=== PATIENT | male | born 1980 | race Caucasian/White ===

== ENCOUNTER 2017-01-23 13:09 | Day surgery (SDC) | payer BC, MEDICARE ==
[2017-01-23] MEDS ORDERED: PROPOFOL 10 MG/ML VIAL IV ONE (14:00)
[2017-01-23] MEDS ORDERED: MIDAZOLAM HCL 2MG/2ML VIAL IV ONE (14:00)
[2017-01-23] MEDS ORDERED: LIDOCAINE 2% MDV (20MG/ML) 20ML VIAL IV ONE (14:00)
--- NOTE | 2017-01-29 21:10 | Operative Note ---
DATE OF SURGERY: 01/23/2017 OPERATION: COLONOSCOPY with hot snare polypectomy and hemoclip application. PREOPERATIVE DIAGNOSIS: Change in bowel habits. POSTOPERATIVE DIAGNOSIS: Transverse colon polyp, status post hot snare polypectomy and hemoclip placement for wound closure purposes. PROCEDURE: After informed consent was obtained from the patient, he was placed in the left lateral decubitus position in the endoscopy suite, sedated and monitored by the department of anesthesia. Digital rectal exam revealed an external hemorrhoid which may be partially thrombosed. A well-lubricated [id number] colonoscope was inserted into the rectum and advanced to the cecum. Preparation quality was good. The cecum and ascending colon were unremarkable. In the transverse colon, there was noted to be a 6-7 mm sessile polyp removed with a polypectomy snare and ERBE Endocut current. There was no bleeding at the site. The polyp was retrieved and a hemoclip was applied to the site for wound closure purposes. The remainder of the transverse colon, descending colon, sigmoid colon, and rectum were unremarkable. J-turn views of the anorectum were unremarkable. The endoscope was straightened, the rectal ampulla deflated, and the endoscope was removed. RECOMMENDATIONS: The patient should follow a soft low-fiber diet for the next week and a high-fiber diet thereafter. He should resume his Amitiza. If his constipation recurs, he could add MiraLax to the Amitiza. If that is not helpful, then perhaps he may need to consider something like Relistor or Movantik. He will require repeat exam in 1 to 3 to 5 years pending tissue histology. As always, thank you for allowing me to participate in the healthcare of your patients. CC: Dr. Angie DUBOSE
== END 2017-01-23 14:38 | disposition home or self-care (01) ==
LOC: HOP 13:09
PROVIDERS: ATTEND Internal Medicine Gastroenterology
DX: K59.09 Other constipation (principal); D12.3 Benign neoplasm of transverse colon; K64.5 Perianal venous thrombosis

== ENCOUNTER 2019-06-03 08:48 | Day surgery (SDC) | payer BC, MEDICARE ==
[2019-06-03] MEDS ORDERED: PROPOFOL 10 MG/ML VIAL IV ONE (08:49)
[2019-06-03] MEDS ORDERED: LIDOCAINE 2% MDV (20MG/ML) 20ML VIAL IV ONE (08:49)
--- NOTE | 2019-06-04 15:20 | Operative Note ---
OPERATION: COLONOSCOPY with cold forceps polypectomy x2. PREOPERATIVE DIAGNOSIS: Personal history of colon polyps and change in bowel habits. POSTOPERATIVE DIAGNOSIS: Ascending colon polyp and rectal polyp. PREPARATION QUALITY: Good. ESTIMATED BLOOD LOSS: Minimum. SPECIMENS: Ascending colon polyp and rectal polyp. COMPLICATIONS: None apparent. PROCEDURE: After informed consent was obtained from the patient, he was placed in the left lateral decubitus position in the endoscopy suite, sedated and monitored by the department of anesthesia. Digital rectal exam was unremarkable. A well-lubricated [id number] colonoscope was inserted into the rectum and advanced to the cecum. The cecum, cecal bulb, ileocecal valve, and appendiceal orifice were unremarkable. There was a diminutive ascending colon polyp removed with a cold forceps. The remainder of the ascending colon, transverse colon, descending colon, and sigmoid colon were unremarkable. There was a diminutive rectal polyp identified and removed with a cold forceps. The remainder of the rectum and anorectum were unrevealing. J-turn views of the anorectum were unremarkable. The endoscope was straightened, the rectal ampulla deflated, and the endoscope was removed. RECOMMENDATIONS: I would suggest the patient follow a high-fiber diet. He will require repeat exam in 5 years for continued surveillance based on his history and current findings. As always, thank you for allowing me to participate in the healthcare of your patients. SEDRICK
== END 2019-06-03 10:50 | disposition home or self-care (01) ==
LOC: HOP 08:48
PROVIDERS: ATTEND Internal Medicine Gastroenterology
DX: Z86.010 Personal history of colon polyps (principal); R19.4 Change in bowel habit; D12.2 Benign neoplasm of ascending colon; D12.8 Benign neoplasm of rectum; F17.210 Nicotine dependence, cigarettes, uncomplicated; F31.9 Bipolar disorder, unspecified; M54.9 Dorsalgia, unspecified